=== PATIENT | male | born 1955 | race Asian ===

== ENCOUNTER 2016-11-14 06:59 | Emergency (ER) | payer OTHER ==
[~2016-11-14] VITALS: Ht 180.3 cm; Wt 62.1 kg
[~2016-11-14 06:59] MED LIST: OXYC5TAB53 PO
[2016-11-14 07:05] VITALS: TEMP 97.8
[2016-11-14 08:12] LABS: PLATELET COUNT 723 K/uL (142-355)
[2016-11-14 08:18] LABS: POTASSIUM 4.1 mmol/L (3.6-5.2)
[2016-11-14 12:42] VITALS: BP 152/89
== END 2016-11-14 12:42 | disposition home or self-care (01) ==
LOC: ED 06:59
DX: K59.00 Constipation, unspecified (principal); C78.00 Secondary malignant neoplasm of unspecified lung; R31.9 Hematuria, unspecified
CPT/HCPCS: 80053; 81000; 85027; 96365; 96375; 99284; J2405; J3411; J3475; J3490

== ENCOUNTER 2016-11-15 19:30 | Emergency (ER) | payer OTHER ==
[~2016-11-15] VITALS: Ht 180.3 cm; Wt 62.1 kg
[2016-11-15 20:36] VITALS: BP 154/95; TEMP 97.8
== END 2016-11-15 20:37 | disposition home or self-care (01) ==
LOC: ED 19:30
DX: C18.7 Malignant neoplasm of sigmoid colon (principal)
CPT/HCPCS: 99281